=== PATIENT | male | born 1965 | race Caucasian/White ===

== ENCOUNTER 2019-02-05 09:02 | Outpatient (CLI) | payer MEDICARE, MEDICAID | END 2019-02-05 23:59 | disposition home or self-care (01) | LOC: VAS 09:02 | PROVIDERS: ATTEND Internal Medicine Cardiovascular Disease | DX: I70.293 Other atherosclerosis of native arteries of extremities, bilateral legs (principal); F17.200 Nicotine dependence, unspecified, uncomplicated | CPT/HCPCS: 93922; 93925 ==

== ENCOUNTER 2019-02-12 08:49 | Day surgery (SDC) | payer MEDICARE, MEDICAID ==
[2019-02-11 10:18] LABS: BASOPHILS # (AUTO) 0.1 X10'3 (0-0.2); BASOPHILS % (AUTO) 0.5 % (0-1); EOSINOPHILS # (AUTO) 0.1 X10'3 (0-0.9); EOSINOPHILS % (AUTO) 1.3 % (0-6); HEMOGLOBIN 13.6 g/dl (14.0-17.9); LYMPHOCYTES # (AUTO) 2.3 X10'3 (1.1-4.8); LYMPHOCYTES % (AUTO) 19.7 % (21-51); MEAN CORPUSCULAR HEMOGLOBIN 26.9 PG (27.0-31.0); MEAN CORPUSCULAR HGB CONC 33.2 g/dL (33.0-36.5); MEAN CORPUSCULAR VOLUME 81.2 FL (78-98); MEAN PLATELET VOLUME 8.2 FL (7.4-10.4); MONOCYTES # (AUTO) 0.4 X10'3 (0-0.9); MONOCYTES % (AUTO) 3.2 % (2-12); NEUTROPHILS # (AUTO) 8.9 X10'3 (1.8-7.7); NEUTROPHILS % (AUTO) 75.3 % (42-75); PLATELET COUNT 318 X10'3 (140-440); RED BLOOD COUNT 5.06 X10'6 (4.70-6.10); RED CELL DISTRIBUTION WIDTH 14.8 % (11.5-14.5); WHITE BLOOD COUNT 11.8 X10'3 (4.5-11.0)
[2019-02-11 10:22] LABS: ALBUMIN 3.5 G/DL (3.4-5.0); ANION GAP 13 (8-16); BLOOD UREA NITROGEN 46 MG/DL (7-18); BUN/CREATININE RATIO 35.1 (5.4-32.0); CALCIUM 9.3 MG/DL (8.5-10.1); CHLORIDE 100 MMOL/L (99-107); CREATININE 1.31 MG/DL (0.60-1.10); GLUCOSE 249 MG/DL (70-104); POTASSIUM 4.6 MMOL/L (3.5-5.1); SODIUM 135 MMOL/L (135-145); TOTAL CARBON DIOXIDE 22.1 MMOL/L (24-32); eGFR 57 ML/MIN
[2019-02-11 10:27] LABS: PARTIAL THROMBOPLASTIN TIME 33 SECONDS (22-32)
[2019-02-12] VITALS (15 sets, daily range): BP systolic 103–165; BP diastolic 36–93
[~2019-02-12] VITALS: Ht 167.6 cm; Wt 81.4 kg
[2019-02-12] MEDS ORDERED: acetylcysteine 200 MG/ml 4ml vial PO SCH (09:06)
[2019-02-12] MEDS ORDERED: diphenhydrAMINE 25mg capsule PO PRN (09:10)
[2019-02-12] MEDS ORDERED: normal saline 1,000 ML IV SCH (09:10)
[2019-02-12] MEDS ORDERED: PREG50CA PO (09:22)
[2019-02-12] MEDS ORDERED: CLOP75TA15 PO (09:22)
[2019-02-12] MEDS ORDERED: FOLI1TAB16 PO (09:22)
[2019-02-12] MEDS ORDERED: ATOR80TA PO (09:22)
[2019-02-12] MEDS ORDERED: SERT50TA PO (09:22)
[2019-02-12] MEDS ORDERED: METO50TA7 PO (09:22)
[2019-02-12] MEDS ORDERED: LORazepam 0.5 MG tablet PO PRN (09:35)
[2019-02-12] MEDS ORDERED: sodium bicarbonate (8.4%) inj. 75 MEQ in dextrose 5%-water 500 ML IV ONE (09:40)
[2019-02-12] MEDS ORDERED: sodium bicarbonate inj. 75 ML in dextrose 5% water 500ml 500 ML IV ONE (09:55)
[2019-02-12] MEDS ORDERED: midazolam 2 mg/2 ml injection ONE (09:58)
[2019-02-12] MEDS ORDERED: LIDOcaine 1% (10mg/ml)w/preservative injection 20ml MDV ONE (09:58)
[2019-02-12] MEDS ORDERED: fentaNYL/PF 50MCG/1 ML 2ML syringe ONE (09:58)
[2019-02-12] MEDS ORDERED: verapamil 2.5 mg/ml inj IV ONE (09:58)
[2019-02-12] MEDS ORDERED: iohexol 350 MG/ML 50ML vial IV ONE ×2 (09:59→10:23)
[2019-02-12] MEDS ORDERED: heparin 1,000unit/ml 10ml vial 10 ML ONE (09:59)
[2019-02-12] MEDS ORDERED: iohexol 350MG/ML 100ml bottle IV ONE ×2 (09:59→10:56)
[2019-02-12] MEDS ORDERED: nitroGLYCERIN-Tridil 50MG/D5W 250 ML IV ONE (09:59)
[2019-02-12] MEDS ORDERED: pneumococcal 23-VAL P-sac vacc 25 mcg/0.5ml vial IMVAC ONE (11:05)
[2019-02-12 11:21] LABS: ISTAT HGB ART 11.9 g/dl (14.0-18.0); ISTAT Hct ART 35 %PCV (42-52); ISTAT O2 SATURATION ARTERIAL 95 % (95-98); ISTAT SOURCE ART
[2019-02-12 11:21] LABS: ISTAT Hct MIX 35 %PCV (42-52); ISTAT O2 SATURATION MIX VENOUS 58 % (60-80); ISTAT SOURCE MIX
== END 2019-02-12 19:55 | disposition home or self-care (01) ==
LOC: SSTAY O 08:49
PROVIDERS: ATTEND Internal Medicine Cardiovascular Disease
DX: I25.10 Atherosclerotic heart disease of native coronary artery without angina pectoris (principal); I10 Essential (primary) hypertension; E78.5 Hyperlipidemia, unspecified; J44.9 Chronic obstructive pulmonary disease, unspecified; F17.210 Nicotine dependence, cigarettes, uncomplicated; Z95.5 Presence of coronary angioplasty implant and graft; Z79.01 Long term (current) use of anticoagulants; Z79.899 Other long term (current) drug therapy; Z98.890 Other specified postprocedural states; Z95.2 Presence of prosthetic heart valve
CPT/HCPCS: 36415; 80048; 82803; 82948; 85014; 85025; 85610; 85730; 93005; 93460; 93567; 99152; 99153; C1769; C1894; J1644; J2001; J2250; J3010; J7030; J7060; Q0163; Q9967; A4620; A5120; A6258; J3490

== ENCOUNTER 2019-06-02 08:24 | Day surgery (SDC) | payer MEDICARE, MEDICAID ==
[~2019-06-02] VITALS: Ht 167.6 cm; Wt 74.8 kg
[2019-06-02] VITALS (10 sets, daily range): BP systolic 105–155; BP diastolic 35–75
[~2019-06-02 08:24] MED LIST: ATOR80TA PO; CLOP75TA15 PO; FOLI1TAB16 PO; METO50TA7 PO; PREG50CA PO; SERT50TA PO
[2019-06-02] MEDS ORDERED: normal saline 1000ml 1,000 ML IV PRN (09:00)
[2019-06-02 09:17] LABS: BASOPHILS # (AUTO) 0.1 X10'3 (0-0.2); BASOPHILS % (AUTO) 0.6 % (0-1); EOSINOPHILS # (AUTO) 0.3 X10'3 (0-0.9); HEMATOCRIT 41.3 % (42.0-52.0); LYMPHOCYTES # (AUTO) 2.5 X10'3 (1.1-4.8); LYMPHOCYTES % (AUTO) 18.2 % (21-51); MEAN CORPUSCULAR HEMOGLOBIN 27.4 PG (27.0-31.0); MEAN CORPUSCULAR HGB CONC 33.9 g/dL (33.0-36.5); MEAN CORPUSCULAR VOLUME 80.9 FL (78-98); MEAN PLATELET VOLUME 8.7 FL (7.4-10.4); MONOCYTES # (AUTO) 0.6 X10'3 (0-0.9); MONOCYTES % (AUTO) 4.6 % (2-12); NEUTROPHILS # (AUTO) 10.4 X10'3 (1.8-7.7); NEUTROPHILS % (AUTO) 74.6 % (42-75); PLATELET COUNT 273 X10'3 (140-440); RED CELL DISTRIBUTION WIDTH 15.4 % (11.5-14.5)
[2019-06-02 09:27] LABS: ALANINE AMINOTRANSFERASE 29 U/L (12-78); ALBUMIN 3.3 G/DL (3.4-5.0); ALBUMIN/GLOBULIN RATIO 0.7 (1.1-1.5); ALKALINE PHOSPHATASE 102 IU/L (46-116); ANION GAP 6 (8-16); ASPARTATE AMINO TRANSFERASE 16 U/L (10-37); BILIRUBIN,TOTAL 0.4 MG/DL (0.1-1.0); BLOOD UREA NITROGEN 17 MG/DL (7-18); CALCIUM 8.9 MG/DL (8.5-10.1); CHLORIDE 101 MMOL/L (99-107); GLUCOSE 144 MG/DL (70-104); POTASSIUM 4.5 MMOL/L (3.5-5.1); SODIUM 136 MMOL/L (135-145); TOTAL CARBON DIOXIDE 28.6 MMOL/L (24-32); TOTAL PROTEIN 8.1 G/DL (6.4-8.2); eGFR 78 ML/MIN
[2019-06-02] MEDS ORDERED: fentaNYL/PF 50MCG/1 ML 2ML syringe IV PRN (09:35)
[2019-06-02] MEDS ORDERED: midazolam 2 mg/2 ml injection IV PRN (09:35)
[2019-06-02] MEDS ORDERED: LIDOcaine 1% (10mg/ml) 2ml vial SQ ONE (09:35)
[2019-06-02] MEDS ORDERED: heparin 1,000 UNITS/NS 500ml 500 ML ICATH ONE (09:35)
[2019-06-02] MEDS ORDERED: METF500T20 PO (09:42)
[2019-06-02] MEDS ORDERED: HYDR-4353 PO (09:42)
[2019-06-02] MEDS ORDERED: midazolam 2 mg/2 ml injection ONE ×2 (10:33→11:14)
[2019-06-02] MEDS ORDERED: heparin 1,000 UNITS/NS 500ml 500 ML ONE (10:33)
[2019-06-02] MEDS ORDERED: LIDOcaine 1%/PF 5ML 10 MG/ML VIAL ONE (10:33)
[2019-06-02] MEDS ORDERED: fentaNYL/PF 50MCG/1 ML 2ML syringe ONE ×4 (10:33→11:29)
[2019-06-02] MEDS ORDERED: iohexol 300mg/ml 100ml inj. ONE (10:34)
[2019-06-02] MEDS ORDERED: pneumococcal 23-VAL P-sac vacc 25 mcg/0.5ml vial IMVAC ONE (11:55)
[2019-06-02] MEDS ORDERED: normal saline 1000ml 1,000 ML IV SCH (12:11)
== END 2019-06-02 16:05 | disposition home or self-care (01) ==
LOC: SSTAY O 08:24
PROVIDERS: ATTEND Radiology Vascular & Interventional Radiology
DX: I70.213 Atherosclerosis of native arteries of extremities with intermittent claudication, bilateral legs (principal); I70.92 Chronic total occlusion of artery of the extremities
CPT/HCPCS: 36415; 37221; 37224; 76937; 80053; 85025; 85610; 99152; 99153; C1725; C1760; C1769; C1876; C1894; J1644; J2250; J3010; J7030; Q9967; A6213

== ENCOUNTER 2021-09-21 08:51 | Day surgery (SDC) | payer MEDICARE, MEDICAID ==
[2021-09-20 13:34] LABS: BASOPHILS # (AUTO) 0.1 X10'3 (0-0.2); BASOPHILS % (AUTO) 0.5 % (0-1); EOSINOPHILS # (AUTO) 0.3 X10'3 (0-0.9); EOSINOPHILS % (AUTO) 2.1 % (0-6); HEMATOCRIT 40.8 % (42.0-52.0); HEMOGLOBIN 13.3 g/dl (14.0-17.9); LYMPHOCYTES # (AUTO) 3.4 X10'3 (1.1-4.8); LYMPHOCYTES % (AUTO) 27.7 % (21-51); MEAN CORPUSCULAR HEMOGLOBIN 27.7 PG (27.0-31.0); MEAN CORPUSCULAR HGB CONC 32.7 g/dL (33.0-36.5); MEAN CORPUSCULAR VOLUME 84.7 FL (78-98); MEAN PLATELET VOLUME 11.1 FL (7.4-10.4); MONOCYTES # (AUTO) 0.9 X10'3 (0-0.9); MONOCYTES % (AUTO) 7.6 % (2-12); NEUTROPHILS # (AUTO) 7.7 X10'3 (1.8-7.7); NEUTROPHILS % (AUTO) 62.1 % (42-75); PLATELET COUNT 173 X10'3 (140-440); RED BLOOD COUNT 4.81 X10'6 (4.70-6.10); RED CELL DISTRIBUTION WIDTH 15.2 % (11.5-14.5); WHITE BLOOD COUNT 12.3 X10'3 (4.5-11.0)
[2021-09-20 13:44] LABS: ALBUMIN 3.4 G/DL (3.4-5.0); ANION GAP 12 (8-16); BLOOD UREA NITROGEN 24 MG/DL (7-18); BUN/CREATININE RATIO 23.5 (5.4-32.0); CALCIUM 9.4 MG/DL (8.5-10.1); CHLORIDE 100 MMOL/L (99-107); CREATININE 1.02 MG/DL (0.60-1.10); GLUCOSE 246 MG/DL (70-104); POTASSIUM 4.6 MMOL/L (3.5-5.1); SODIUM 133 MMOL/L (135-145); TOTAL CARBON DIOXIDE 21.4 MMOL/L (24-32); eGFR 75 ML/MIN
[2021-09-20 13:48] LABS: APTT 31 SECONDS (22-32)
[2021-09-20 14:03] LABS: LARGE PLATELETS FEW; PLATELET ESTIMATE NORMAL
[2021-09-21] VITALS (11 sets, daily range): BP systolic 106–157; BP diastolic 40–77
[~2021-09-21] VITALS: Ht 167.6 cm; Wt 75.7 kg
[~2021-09-21 08:51] MED LIST changes: -FOLI1TAB16 PO; +FOLI1TAB27 PO; +HYDR-4353 PO; +METF-900 PO
[2021-09-21] MEDS ORDERED: LORazepam 0.5 MG tablet PO PRN (09:15)
[2021-09-21] MEDS ORDERED: diphenhydrAMINE 25mg capsule PO PRN (09:15)
[2021-09-21] MEDS ORDERED: LISI10TA27 PO (09:43)
[2021-09-21] MEDS ORDERED: PREG50CA64 PO (09:43)
[2021-09-21] MEDS ORDERED: ALBU18HF2 IH (09:43)
[2021-09-21] MEDS ORDERED: verapamil 2.5 mg/ml inj IV ONE (09:48)
[2021-09-21] MEDS ORDERED: iohexol 350MG/ML 100ml bottle IV ONE ×2 (09:49→10:49)
[2021-09-21] MEDS ORDERED: iohexol 350 MG/ML 50ML vial IV ONE (09:49)
[2021-09-21] MEDS ORDERED: nitroGLYCERIN-Tridil 50MG/D5W 250 ML IV ONE (09:49)
[2021-09-21] MEDS ORDERED: midazolam 1 mg/ML 2ml injection ONE (09:49)
[2021-09-21] MEDS ORDERED: fentaNYL/PF 50MCG/1 ML 2ML syringe ONE (09:49)
[2021-09-21] MEDS ORDERED: heparin 1,000unit/ml 10ml vial 10 ML ONE (09:49)
[2021-09-21] MEDS ORDERED: LIDOcaine 1% (10mg/ml)w/preservative inj. 20ml MDV ONE (09:49)
[2021-09-21] MEDS ORDERED: normal saline 1000ml 1,000 ML IV SCH (11:45)
[2021-09-21] MEDS ORDERED: HYDROcodone/acetaminophen 10/325mg tab PO ONE (12:20)
== END 2021-09-21 16:55 | disposition home or self-care (01) ==
LOC: SSTAY O 08:51
PROVIDERS: ATTEND Internal Medicine Cardiovascular Disease
DX: R94.39 Abnormal result of other cardiovascular function study (principal); R53.83 Other fatigue; R06.02 Shortness of breath; I25.10 Atherosclerotic heart disease of native coronary artery without angina pectoris; I10 Essential (primary) hypertension; E78.5 Hyperlipidemia, unspecified; E11.9 Type 2 diabetes mellitus without complications; J44.9 Chronic obstructive pulmonary disease, unspecified; M19.09 Primary osteoarthritis, other specified site; F17.210 Nicotine dependence, cigarettes, uncomplicated; Z95.2 Presence of prosthetic heart valve; Z95.5 Presence of coronary angioplasty implant and graft; Z79.899 Other long term (current) drug therapy; Z79.84 Long term (current) use of oral hypoglycemic drugs
CPT/HCPCS: 36415; 76937; 80048; 82948; 85025; 85610; 85730; 93005; 93458; 99152; 99153; C1760; C1769; C1894; J1644; J2250; J3010; J3490; J7030; Q0163; Q9967; 85008; A4620

== ENCOUNTER 2021-10-06 19:22 | Inpatient (IN) | payer MEDICARE, MEDICAID ==
[~2021-10-06] VITALS: Ht 170.2 cm; Wt 80.0 kg
[~2021-10-06 19:22] MED LIST changes: +ALBU18HF2 IH; +LISI10TA27 PO; +PREG50CA64 PO
[2021-10-06] MEDS ORDERED: heparin 10,000 units/1 ML INJ IV ONE ×3 (19:30→19:50)
[2021-10-06] MEDS ORDERED: heparin 10,000 units/1 ML INJ IV PRN ×2 (19:30→22:45)
[2021-10-06] MEDS ORDERED: metoprolol tartrate 1mg/ml inj IV ONE (19:35)
--- NOTE | 2021-10-06 19:45 | NUR ---
PT BIB EMS FOR POSSIBLE STEMI AND CP. PT HAD EKG IN THE FIELD THAT APPEARED LIKE A STEMI. PT WAS SITTING OUTSIDE OF APT WITH CHEST BURNING AFTER EATING DINNER AND TAKING HIS FIVE EVENING MEDICATIONS. PT WAS ALTERED UPON ARRIVAL OF EMS AND HERE. PT BS IN FIELD WAS 281. PT HAS CARDIAC HX AND SIGNIFICANT SMOKING HX. PT HAS A HX OF COPD. PT MEDICATIONS AT HOME ARE LISINOPRIL, METFORMIN, LIPITOR, AND LYRICA. CODE BEGAN AT 1921. EKG PRORMED AND READ AT [address] MARQUEZ RULED OUT STEMI. DID NOT ADMINISTER ASPIRIN B/C 325 ASPIRIN GIVEN IN THE FIELD. TWO 20G IVs (R. FA AND R. WRIST) INITIATED BY NURSING STAFF. STEMI CALLED OFF AT [address] MARQUEZ. 5MG OF LOPRESSOR ADMINISTERED AT 193.
[2021-10-06 19:46] LABS: BASOPHILS # (AUTO) 0.1 X10'3 (0-0.2); BASOPHILS % (AUTO) 0.7 % (0-1); EOSINOPHILS # (AUTO) 0.4 X10'3 (0-0.9); HEMATOCRIT 40.2 % (42.0-52.0); HEMOGLOBIN 13.3 g/dl (14.0-17.9); LYMPHOCYTES % (AUTO) 26.7 % (21-51); MEAN CORPUSCULAR HEMOGLOBIN 27.9 PG (27.0-31.0); MEAN CORPUSCULAR VOLUME 84.5 FL (78-98); MEAN PLATELET VOLUME 9.4 FL (7.4-10.4); MONOCYTES # (AUTO) 1.3 X10'3 (0-0.9); NEUTROPHILS # (AUTO) 11.9 X10'3 (1.8-7.7); NEUTROPHILS % (AUTO) 63.6 % (42-75); PLATELET COUNT 288 X10'3 (140-440); RED BLOOD COUNT 4.75 X10'6 (4.70-6.10); RED CELL DISTRIBUTION WIDTH 14.7 % (11.5-14.5); WHITE BLOOD COUNT 18.6 X10'3 (4.5-11.0)
[2021-10-06 20:01] LABS: ALANINE AMINOTRANSFERASE 24 U/L (12-78); ALBUMIN 3.6 G/DL (3.4-5.0); ALBUMIN/GLOBULIN RATIO 0.8 (1.1-1.5); ALKALINE PHOSPHATASE 104 IU/L (46-116); ANION GAP 11 (8-16); ASPARTATE AMINO TRANSFERASE 15 U/L (10-37); BILIRUBIN,TOTAL 0.3 MG/DL (0.1-1.0); BLOOD UREA NITROGEN 30 MG/DL (7-18); BUN/CREATININE RATIO 25.2 (5.4-32.0); CALCIUM 9.1 MG/DL (8.5-10.1); CHLORIDE 97 MMOL/L (99-107); CREATININE 1.19 MG/DL (0.60-1.10); GLUCOSE 299 MG/DL (70-104); POTASSIUM 4.8 MMOL/L (3.5-5.1); SODIUM 132 MMOL/L (135-145); TOTAL CARBON DIOXIDE 23.6 MMOL/L (24-32); TOTAL PROTEIN 8.4 G/DL (6.4-8.2); eGFR 63 ML/MIN
[2021-10-06 20:07] LABS: ETHANOL < 0.010 GM/DL (0.0-0.010); MAGNESIUM 1.6 MG/DL (1.5-2.4)
[2021-10-06] MEDS ORDERED: normal saline 500ml IV soln 500 ML IV SCH (20:15)
[2021-10-06] MEDS ORDERED: normal saline 1000ML IV soln IV ONE (20:25)
[2021-10-06 20:27] LABS: APTT 30 SECONDS (22-32)
[2021-10-06 20:55] LABS: URINE AMPHETAMINE SCREEN NEGATIVE (Neg); URINE BARBITUATE SCREEN NEGATIVE (Neg); URINE BENZODIAZEPINES SCREEN NEGATIVE (Neg); URINE CANNABINOID SCREEN POSITIVE (Neg); URINE COCAINE SCREEN NEGATIVE (Neg); URINE METHADONE SCREEN NEGATIVE (Neg); URINE OPIATE SCREEN POSITIVE (Neg); URINE PHENCYCLIDINE SCREEN NEGATIVE (Neg)
[2021-10-06] MEDS ORDERED: temazepam 15mg capsule PO PRN (21:00)
[2021-10-06 21:11] LABS: CLARITY,URINE CLEAR (Clear); COLOR,URINE YELLOW (Yellow); GLUCOSE, URINE NEGATIVE (Neg); KETONES,URINE NEGATIVE (Neg); LEUKOCYTE ESTERASE ,URINE NEGATIVE (Neg); NITRITES, URINE NEGATIVE (Neg); OCCULT BLOOD,URINE NEGATIVE (Neg); PH,URINE 5.5 (4.8-8.0); PROTEIN,URINE 100 mg/dl (Neg); UROBILINOGEN,URINE 0.2 E.U/dL (0.2-1.0)
[2021-10-06 21:30] LABS: UA COLLECTION TYPE STRAIGHT CATH
[2021-10-06 21:31] LABS: BACTERIA,URINE NONE SEEN /HPF (Neg); RBC,URINE 0-2 /HPF (0-2); SQUAMOUS EPITHELIAL CELL,UR FEW /LPF (FEW); WBC,URINE 0-4 /HPF (0-4)
[2021-10-06] MEDS ORDERED: piperacillin/tazo 3.375gm/50ml 50 ML IV ONE (21:50)
[2021-10-06] MEDS: heparin 25,000 UNIT/250ml bag 250 ML IV SCH (22:12)
[2021-10-06] MEDS ORDERED: potassium Cl 20 mEq SR tablet PO PRN ×2 (22:30)
[2021-10-06] MEDS: normal saline 1000ml 1,000 ML IV SCH (22:30)
[2021-10-06] MEDS ORDERED: magnesium 2GM in 50ml NS 50 ML IV PRN (22:30)
[2021-10-06] MEDS ORDERED: magnesium Cl slow-release 64mg tablet PO PRN (22:30)
[2021-10-06] MEDS ORDERED: magnesium 4gm in 100ml NS 100 ML IV PRN (22:30)
[2021-10-06] MEDS ORDERED: mag hydrox/Alum hydrox/simeth 30ml oral suspension PO PRN (22:30)
[2021-10-06] MEDS ORDERED: ondansetron/PF 4mg/2ml inj IV PRN (22:30)
[2021-10-06] MEDS ORDERED: magnesium hydroxide 30ml (MOM) UD suspension PO PRN (22:30)
[2021-10-06] MEDS ORDERED: potassium CL 10mEq/100ml bag 100 ML IV PRN (22:30)
[2021-10-06] MEDS ORDERED: acetaminophen 325mg tablet PO PRN ×2 (22:30)
[2021-10-06] MEDS ORDERED: morphine 2 MG/ML inj. syringe IV PRN (22:30)
[2021-10-06] MEDS ORDERED: DEXTROSE 15 GM of carb/4 tabs (each vial/BOTTLE has 4 tablets) PO PRN ×2 (22:40)
[2021-10-06] MEDS ORDERED: dextrose 50%-water 50ml dispensing syringe IV PRN ×2 (22:40)
[2021-10-06] MEDS ORDERED: MESSAGE TO PHARMACY PO ONE (22:40)
[2021-10-06] MEDS ORDERED: glucagon, human recombinant 1mg kit SUBCUT PRN (22:40)
[2021-10-06] MEDS ORDERED: albuterol 2.5 MG/3 ML nebule NEB PRN (22:45)
[2021-10-06] MEDS ORDERED: heparin 25,000 UNIT/250ml bag 250 ML IV SCH (22:45)
[2021-10-06 22:58] LABS: HEMOGLOBIN A1C 9.3 % (4.5-6.2)
--- NOTE | 2021-10-06 23:04 | NUR ---
hospitalist paged for elevated trop value. waiting for call back.
[2021-10-06] MEDS ORDERED: MIRT-88 PO (23:11)
[2021-10-06] MEDS ORDERED: METF-438 PO (23:11)
[2021-10-06] MEDS ORDERED: METO-384 PO (23:11)
[2021-10-06] MEDS ORDERED: SERT-433 PO (23:11)
[2021-10-06] MEDS: CefTRIAXone 2gm/NS 100ml IVPB 100 ML IV SCH (23:30)
[2021-10-07] MEDS ORDERED: ALBUTEROL INHALER 1 PUFF/90 MCG INHALER IH PRN (00:55)
[2021-10-07 05:02] LABS: BASOPHILS # (AUTO) 0.1 X10'3 (0-0.2); BASOPHILS % (AUTO) 0.7 % (0-1); EOSINOPHILS # (AUTO) 0.2 X10'3 (0-0.9); EOSINOPHILS % (AUTO) 1.7 % (0-6); HEMATOCRIT 31.7 % (42.0-52.0); LYMPHOCYTES # (AUTO) 3.5 X10'3 (1.1-4.8); LYMPHOCYTES % (AUTO) 30.2 % (21-51); MEAN CORPUSCULAR HEMOGLOBIN 28.4 PG (27.0-31.0); MEAN CORPUSCULAR HGB CONC 33.2 g/dL (33.0-36.5); MEAN CORPUSCULAR VOLUME 85.4 FL (78-98); MEAN PLATELET VOLUME 8.9 FL (7.4-10.4); MONOCYTES # (AUTO) 0.6 X10'3 (0-0.9); MONOCYTES % (AUTO) 5.5 % (2-12); NEUTROPHILS # (AUTO) 7.2 X10'3 (1.8-7.7); NEUTROPHILS % (AUTO) 61.9 % (42-75); PLATELET COUNT 184 X10'3 (140-440); RED BLOOD COUNT 3.72 X10'6 (4.70-6.10); RED CELL DISTRIBUTION WIDTH 14.6 % (11.5-14.5); WHITE BLOOD COUNT 11.6 X10'3 (4.5-11.0)
[2021-10-07 05:17] LABS: ALANINE AMINOTRANSFERASE 19 U/L (12-78); ALBUMIN 2.6 G/DL (3.4-5.0); ALBUMIN/GLOBULIN RATIO 0.7 (1.1-1.5); ALKALINE PHOSPHATASE 75 IU/L (46-116); ANION GAP 6 (8-16); ASPARTATE AMINO TRANSFERASE 21 U/L (10-37); BILIRUBIN,TOTAL 0.1 MG/DL (0.1-1.0); BLOOD UREA NITROGEN 24 MG/DL (7-18); BUN/CREATININE RATIO 24.5 (5.4-32.0); CALCIUM 7.4 MG/DL (8.5-10.1); CHLORIDE 107 MMOL/L (99-107); CHOL/HDL RATIO 2.9 (0.00-4.99); CHOLESTEROL 126 MG/DL (0-200); CREATININE 0.98 MG/DL (0.60-1.10); GLUCOSE 123 MG/DL (70-104); HDL CHOLESTEROL 43 MG/DL (35-60); LDL CHOLESTEROL 68 MG/DL (50-100); POTASSIUM 5.1 MMOL/L (3.5-5.1); SODIUM 137 MMOL/L (135-145); TOTAL CARBON DIOXIDE 23.6 MMOL/L (24-32); TOTAL PROTEIN 6.3 G/DL (6.4-8.2); TRIGLYCERIDES 139 MG/DL (20-135); eGFR 79 ML/MIN
[2021-10-07 05:22] LABS: HEMOGLOBIN 10.5 g/dl (14.0-17.9)
--- NOTE | 2021-10-07 05:58 | NUR ---
had to redraw the patient three times due to discrepancy of lab results to former results. due to this i am late in readjusting heparin dosing and re-bolus for the patient.
[2021-10-07] MEDS: heparin 10,000 units/1 ML INJ IV PRN (06:04)
--- NOTE | 2021-10-07 06:18 | NUR ---
PAGING DR LO FOR ABNORMAL CHANGE IN LABS. WAITING FOR RESPONSE BACK FOR CONCERN OF A BLEED.
--- NOTE | 2021-10-07 06:54 | NUR ---
DR LO REPAGED FOR TROP 1973 AND HGB 10.2
--- NOTE | 2021-10-07 07:30 | NUR ---
Discussed Hgb and troponin concerns with Dr. Coleman this amMD stated she would place order for cards consult and hemaoccult.
[2021-10-07] MEDS: folic acid 1mg tablet PO SCH (09:09)
[2021-10-07] MEDS: metoprolol succinate 25mg (24-HOUR) SR. Tablet PO SCH ×2 (09:09→20:10)
[2021-10-07] MEDS: lisinopril 10 MG tablet PO SCH (09:09)
[2021-10-07] MEDS: sertraline 50mg tablet PO SCH ×2 (09:10→20:05)
[2021-10-07] MEDS: pantoprazole 40mg Tablet.DR PO SCH (09:10)
[2021-10-07] MEDS: nicotine 21mg patch - 24 hr TD SCH (09:10)
[2021-10-07] MEDS: K and/or MAG REPLACEMENT MC SCH ×2 (09:11→20:00)
--- NOTE | 2021-10-07 09:11 | NUR ---
ECHO COMPLETED AT BEDSIDE
[2021-10-07] MEDS: HYDROcodone/acetaminophen 5mg/325mg tablet PO PRN ×2 (09:13→20:12)
[2021-10-07 11:03] LABS: HEMATOCRIT 33.6 % (42.0-52.0); MEAN CORPUSCULAR HGB CONC 32.6 g/dL (33.0-36.5); MEAN CORPUSCULAR VOLUME 85.9 FL (78-98); MEAN PLATELET VOLUME 9.7 FL (7.4-10.4); PLATELET COUNT 177 X10'3 (140-440); RED BLOOD COUNT 3.91 X10'6 (4.70-6.10); RED CELL DISTRIBUTION WIDTH 14.6 % (11.5-14.5)
--- NOTE | 2021-10-07 12:52 | NUR ---
PT CLEANED OF URINE INCONTINENCE NEW GOWN PLACED
[2021-10-07] MEDS: normal saline 1000ml 1,000 ML IV SCH (13:01)
--- NOTE | 2021-10-07 16:25 | NUR ---
Received report from ED RNManohar
[2021-10-07 17:00] VITALS: BP 157/58
[2021-10-07] MEDS: heparin 25,000 UNIT/250ml bag 250 ML IV SCH (17:35)
[2021-10-07 18:00] VITALS: BP 127/49
--- NOTE | 2021-10-07 18:30 | NUR ---
Problems reprioritized. Patient report given, questions answered & plan of care reviewed with NEGRITO Braun.
--- NOTE | 2021-10-07 18:43 | NUR ---
Patient in room PCU 3016. I have received report from Demetra MAHAN and had the opportunity to ask questions and assume patient care.
[2021-10-07] MEDS: insulin Lispro (HumaLOG) vial - multi-dose SQ SCH (19:43)
[2021-10-07] MEDS ORDERED: pregabalin 25mg capsule PO SCH (21:00)
[2021-10-07] MEDS ORDERED: insulin glargine (Lantus) pen - multi-dose SQ SCH (21:00)
[2021-10-07] MEDS ORDERED: atorvastatin 20mg tablet PO SCH (21:00)
[2021-10-07] MEDS: CefTRIAXone 2gm/NS 100ml IVPB 100 ML IV SCH (21:43)
[2021-10-07 22:00] VITALS: BP 154/63
[2021-10-08 02:00] VITALS: BP 159/59
[2021-10-08] MEDS: normal saline 1000ml 1,000 ML IV SCH (03:06)
[2021-10-08] MEDS: HYDROcodone/acetaminophen 5mg/325mg tablet PO PRN ×3 (04:22→16:32)
[2021-10-08 06:00] VITALS: BP 135/57
--- NOTE | 2021-10-08 06:20 | NUR ---
Patient in room PCU 3016. I have received report from NEGRITO Andrade and had the opportunity to ask questions and assume patient care.
--- NOTE | 2021-10-08 06:40 | NUR ---
Problems reprioritized. Patient report given, questions answered & plan of care reviewed with Demetra RN.
[2021-10-08 07:24] LABS: BASOPHILS % (AUTO) 0.5 % (0-1); EOSINOPHILS # (AUTO) 0.2 X10'3 (0-0.9); EOSINOPHILS % (AUTO) 2.1 % (0-6); HEMOGLOBIN 10.1 g/dl (14.0-17.9); LYMPHOCYTES # (AUTO) 2.7 X10'3 (1.1-4.8); LYMPHOCYTES % (AUTO) 27.3 % (21-51); MEAN CORPUSCULAR HEMOGLOBIN 28.6 PG (27.0-31.0); MEAN CORPUSCULAR HGB CONC 33.7 g/dL (33.0-36.5); MEAN PLATELET VOLUME 10.2 FL (7.4-10.4); MONOCYTES # (AUTO) 0.5 X10'3 (0-0.9); MONOCYTES % (AUTO) 5.4 % (2-12); NEUTROPHILS # (AUTO) 6.3 X10'3 (1.8-7.7); NEUTROPHILS % (AUTO) 64.7 % (42-75); PLATELET COUNT 164 X10'3 (140-440); RED BLOOD COUNT 3.53 X10'6 (4.70-6.10); RED CELL DISTRIBUTION WIDTH 14.7 % (11.5-14.5); WHITE BLOOD COUNT 9.8 X10'3 (4.5-11.0)
[2021-10-08 07:39] LABS: ALANINE AMINOTRANSFERASE 24 U/L (12-78); ALBUMIN 2.4 G/DL (3.4-5.0); ALBUMIN/GLOBULIN RATIO 0.6 (1.1-1.5); ALKALINE PHOSPHATASE 75 IU/L (46-116); ANION GAP 9 (8-16); ASPARTATE AMINO TRANSFERASE 22 U/L (10-37); BILIRUBIN,TOTAL 0.1 MG/DL (0.1-1.0); BLOOD UREA NITROGEN 18 MG/DL (7-18); BUN/CREATININE RATIO 20.9 (5.4-32.0); CALCIUM 7.5 MG/DL (8.5-10.1); CHLORIDE 109 MMOL/L (99-107); CREATININE 0.86 MG/DL (0.60-1.10); GLUCOSE 218 MG/DL (70-104); POTASSIUM 4.2 MMOL/L (3.5-5.1); SODIUM 139 MMOL/L (135-145); TOTAL CARBON DIOXIDE 21.2 MMOL/L (24-32); TOTAL PROTEIN 6.1 G/DL (6.4-8.2); eGFR > 90 ML/MIN
[2021-10-08] MEDS: heparin 10,000 units/1 ML INJ IV PRN (08:11)
[2021-10-08] MEDS: nicotine 21mg patch - 24 hr TD SCH (08:56)
[2021-10-08] MEDS: metoprolol succinate 25mg (24-HOUR) SR. Tablet PO SCH (08:57)
[2021-10-08] MEDS: folic acid 1mg tablet PO SCH (08:57)
[2021-10-08] MEDS: pantoprazole 40mg Tablet.DR PO SCH (08:57)
[2021-10-08] MEDS: lisinopril 10 MG tablet PO SCH (08:57)
[2021-10-08] MEDS: sertraline 50mg tablet PO SCH (08:57)
[2021-10-08] MEDS: insulin Lispro (HumaLOG) vial - multi-dose SQ SCH ×2 (09:00→13:42)
[2021-10-08] MEDS: K and/or MAG REPLACEMENT MC SCH (09:01)
[2021-10-08 11:00] VITALS: BP 133/58
--- NOTE | 2021-10-08 14:20 | NUR ---
DM consult: Pt with T2DM, current A1c is 9.3%. Pt seen at bedside for DM education. Pt reports seeing a physician every couple of months for DM management and states he takes his medications per rx without difficulties. Pt reports checking BG levels every other day with resulting numbers around 115-120s. Pt denies questions at this time. RD contact information provided and pt encouraged to reach out if needed. Pt endorses a good appetite and denies food allergies though states he doesn't eat red meat or any meat other than chicken, d/w dietary. Pt denies difficulty chewing/swallowing or constipation/diarrhea. Will continue to follow. Recommendations: 1) Continue CHO controlled diet; consider removing heart healthy restriction if physician agreeable in view of lipid panel 2) [place] food preferences: no red meat, chicken only 3) Bowel care per rx 4) Weekly scaled weights Addendum: 10/08/21 at [address] Amended: Links added.
[2021-10-08 15:00] VITALS: BP 105/58
[2021-10-08] MEDS ORDERED: PANT40TA54 PO (15:40)
[2021-10-08] MEDS ORDERED: ISOS5TAB3 PO (15:40)
--- NOTE | 2021-10-08 17:40 | NUR ---
DC inst provided to pt. IV x2 DC'd, tip intact. All belongings sent w/pt. WC to vehicle.
== END 2021-10-08 17:42 | disposition home or self-care (01) | DRG 281 ==
LOC: ER 19:23 → ED HOLD 22:40 → PCU 3S 10-07 16:54
PROVIDERS: ADMIT Internal Medicine; ATTEND Internal Medicine
DX: I21.4 Non-ST elevation (NSTEMI) myocardial infarction (principal); E87.1 Hypo-osmolality and hyponatremia; I25.110 Atherosclerotic heart disease of native coronary artery with unstable angina pectoris; N18.30 Chronic kidney disease, stage 3 unspecified; E11.65 Type 2 diabetes mellitus with hyperglycemia; F12.90 Cannabis use, unspecified, uncomplicated; Z60.2 Problems related to living alone; F11.90 Opioid use, unspecified, uncomplicated; I13.10 Hypertensive heart and chronic kidney disease without heart failure, with stage 1 through stage 4 chronic kidney disease, or unspecified chronic kidney disease; E11.22 Type 2 diabetes mellitus with diabetic chronic kidney disease; E78.5 Hyperlipidemia, unspecified; F17.200 Nicotine dependence, unspecified, uncomplicated; J44.9 Chronic obstructive pulmonary disease, unspecified; Z95.1 Presence of aortocoronary bypass graft; Z95.2 Presence of prosthetic heart valve; Z95.5 Presence of coronary angioplasty implant and graft; Z71.6 Tobacco abuse counseling
CPT/HCPCS: 36415; 70450; 71045; 80053; 80061; 80305; 80320; 81001; 82948; 83036; 83605; 83735; 83880; 84145; 84484; 85025; 85027; 85610; 85730; 87040; 87081; 93005; 93306; 94640; 94760; 99285; G0378; J0696; J1644; J1815; J2543; J3490; J7030; J7040

== ENCOUNTER 2021-11-16 13:26 | Outpatient (CLI) | payer MEDICARE, MEDICAID ==
[~2021-11-16 13:26] MED LIST changes: -CLOP75TA15 PO; +ISOS5TAB3 PO; +METF-438 PO; -METF-900 PO; +METO-384 PO; -METO50TA7 PO; +MIRT-88 PO; +PANT40TA54 PO; -PREG50CA PO; +SERT-433 PO; -SERT50TA PO
== END 2021-11-16 23:59 | disposition home or self-care (01) ==
LOC: CARD DIAG 13:26
PROVIDERS: ATTEND Internal Medicine Cardiovascular Disease
DX: I08.8 Other rheumatic multiple valve diseases (principal); I25.10 Atherosclerotic heart disease of native coronary artery without angina pectoris; I10 Essential (primary) hypertension; E11.9 Type 2 diabetes mellitus without complications; J44.9 Chronic obstructive pulmonary disease, unspecified; Z95.2 Presence of prosthetic heart valve; Z95.5 Presence of coronary angioplasty implant and graft
CPT/HCPCS: 93306

== ENCOUNTER 2022-12-22 12:54 | Emergency (ER) | payer MEDICARE, MEDICAID ==
[~2022-12-22] VITALS: Ht 165.1 cm; Wt 72.0 kg
[2022-12-22 13:01] VITALS: BP 159/52
[2022-12-22] MEDS ORDERED: HYDROcodone/acetaminophen 10/325mg tab PO ONE (15:05)
--- NOTE | 2022-12-22 16:19 | NUR ---
CALLED [facility] AT [phone] ABOUT X-RAY, PERSON WHO ANSWERED SAID THEY WOULD LET KNOW.
[2022-12-22] MEDS ORDERED: CYCL-1 PO (17:38)
== END 2022-12-22 17:43 | disposition left against medical advice (07) ==
LOC: ER 12:55
DX: M54.59 Other low back pain (principal); I11.9 Hypertensive heart disease without heart failure; J44.9 Chronic obstructive pulmonary disease, unspecified; E11.9 Type 2 diabetes mellitus without complications; Z79.899 Other long term (current) drug therapy
CPT/HCPCS: 72100; 99283